=== PATIENT | female | born 1935 | race Two or more races ===

== ENCOUNTER 2018-12-05 13:53 | Emergency (ER) | payer MEDICARE, OTHER ==
[~2018-12-05] VITALS: Ht 160 cm; Wt 86.2 kg
[2018-12-05] MEDS ORDERED: NKM (14:02)
--- NOTE | 2018-12-05 14:22 | NUR ---
ED Nurse Note: Pt came into the ER after falling while walking on the streets. Complaining of 9/10 bilateral knee pain. Pt states that she fell on her knees and the rt side of her face. Rt side of the face noted to be red and slightly swollen. A + O x4. Ambulatory. Granddaughter at the bedside. Skin warm to touch. Swedish speaking only.
[2018-12-05 14:23] VITALS: BP 175/70
[2018-12-05] MEDS ORDERED: Norco 5mg/325mg tab ORAL ONE (14:30)
--- NOTE | 2018-12-05 14:37 | NUR ---
ED Nurse Note: Pt went down for radiology.
--- NOTE | 2018-12-05 15:05 | Diagnostic Imaging Report ---
Indication: Headache Technique: Contiguous 5 mm thick transaxial imaging of the head obtained in a Siemens Sensation [address] scanner. Soft tissue and bone windows generated. Automatic Exposure Control was utilized. Total Dose length Product (DLP): 1944.[address] Dose Index Volume (CTDIvol): 70.38,28.19 mGy Comparison: none Findings: There is moderate prominence of the ventricles, basal cisterns, and cerebral sulci consistent with atrophy. Moderate, nonspecific, white matter hypoattenuation is noted throughout the brain consistent with chronic small vessel disease. There is no midline shift, edema, acute hemorrhage, mass effect, or abnormal extra-axial fluid collections. Bones and extra osseous soft tissues are unremarkable. Impression: No acute intracranial bleed, mass effect or edema. Moderate atrophy of the brain. Evidence of chronic small vessel disease involving white matter tracts. The CT scanner at [facility] is accredited by the [employer] and the scans are performed using dose optimization techniques as appropriate to a performed exam including Automatic Exposure control.
--- NOTE | 2018-12-05 15:08 | NUR ---
ED Nurse Note: Pt came back from CT.
--- NOTE | 2018-12-05 15:20 | Diagnostic Imaging Report ---
Indication: Head and facial trauma and pain Technique: Continuous helical transaxial imaging of the maxillofacial structures obtained without intravenous contrast administration. Coronal 2-D reformats were also obtained. Study obtained in a Siemens sensation [address] Automatic Exposure Control was utilized. Total Dose length Product (DLP): 1944.[address] Dose Index Volume (CTDIvol): 70.38,28.19 mGy Comparison: None Findings: There is no evidence of an acute fracture. Paranasal sinuses and mastoids are clear. Soft tissues are unremarkable. IMPRESSION: No acute injury The CT scanner at [facility] is accredited by the [employer] and the scans are performed using dose optimization techniques as appropriate to a performed exam including Automatic Exposure control.
--- NOTE | 2018-12-05 15:32 | Diagnostic Imaging Report ---
Indication: Pain Knee pain/trauma 3 views of the right knee were obtained. Findings: Bones are osteopenic. No definite fractures identified. Moderate arthrosis demonstrated in all 3 compartments of the knee. IMPRESSION: No acute injury appreciated
--- NOTE | 2018-12-05 15:32 | Diagnostic Imaging Report ---
Indication: Knee Pain 3 views of the left knee were obtained. Findings: There is acute fracture of the patella midpole with prepatellar soft tissue swelling. Bones are osteopenic. Moderate arthrosis of the knee noted in all 3 compartments. IMPRESSION: Acute patellar fracture
--- NOTE | 2018-12-05 17:27 | Emergency Room Report ---
History of Present Illness General Chief Complaint: Pain Source: Family Member Present Illness HPI 83 YO Female presents to the ED c/o 08/31 in severity pain to the bilateral knees, s/p mechanical fall outside, also with tenderness and bruising to the right cheekbone. denies taking blood thinning medications.Denies numbness tingling or loss of sensation or gross motor movements of the extremities, incontinence of bowel or bladder. Denies CP, Palpitations, LOC, AMS, dizziness, Changes in Vision, weakness or a sudden severe headache. The patient denies loss of consciousness and denies chest pain, dizziness or in balance prior to fall. Patient reports that pain is exacerbated with attempts to bear weight on the left leg primarily. She also reports some bruising to the anterior knees bilaterally and some superficial abrasions. she denies midline neck or back pain. Allergies: Coded Allergies: PENICILLINS (Verified Allergy, Unknown, rash, 12/05/18) Patient History Past Medical History: see triage record Past Surgical History: none Pertinent Family History: none Reviewed Nursing Documentation: PMH: Agreed; PSxH: Agreed Review of Systems All Other Systems: negative except mentioned in HPI Physical Exam Vital Signs Date Time Temp Pulse Resp B/P (MAP) Pulse Ox O2 Delivery O2 Flow Rate FiO2 12/05/18 13:59 98.2 81 16 181/69 96 Room Air Sp02 EP Interpretation: reviewed, normal General Appearance: alert, GCS 15, non-toxic, mild distress Head: normocephalic, other - bruising to the right cheekbone, mild ttp as well. Eyes: bilateral eye normal inspection, bilateral eye PERRL, bilateral eye EOMI ENT: hearing grossly normal, normal voice Neck: full range of motion, no bony tend Respiratory: lungs clear, normal breath sounds, speaking full sentences Cardiovascular #1: regular rate, rhythm, normal capillary refill Cardiovascular #2: 2+ dorsalis pedis (R), 2+ dorsalis pedis (L) Musculoskeletal: back normal, tender - TTP to the anterior knees bilaterally, swelling visible, right knee has no increased laxity, left knee unable to tolerate testing. Neurologic: alert, oriented x3, responsive, motor strength/tone normal, sensory intact, speech normal, no pronator, other - no facial droop. , grossly normal Psychiatric: judgement/insight normal Skin: normal color, no rash, warm/dry, well hydrated, other - bruising to the anterior knees bilaterally, and the right cheek bone. , abrasions - anterior knees bilaterally. Lymphatic: no adenopathy Medical Decision Making PA Attestation Dr. Zhang is my supervising Physician whom patient management has been discussed with. Diagnostic Impression: Primary Impression: Patellar fracture Qualified Codes: S82.002A - Unspecified fracture of left patella, initial encounter for closed fracture Additional Impressions: Contusion of right knee Qualified Codes: S80.01XA - Contusion of right knee, initial encounter Contusion of left knee Qualified Codes: S80.02XA - Contusion of left knee, initial encounter ER Course 83 YO Female presents to the ED c/o 08/31 in severity pain to the bilateral knees, s/p mechanical fall outside, also with tenderness and bruising to the right cheekbone. denies taking blood thinning medications.Denies numbness tingling or loss of sensation or gross motor movements of the extremities, incontinence of bowel or bladder. Denies CP, Palpitations, LOC, AMS, dizziness, Changes in Vision, weakness or a sudden severe headache. The patient denies loss of consciousness and denies chest pain, dizziness or in balance prior to fall. Patient reports that pain is exacerbated with attempts to bear weight on the left leg primarily. She also reports some bruising to the anterior knees bilaterally and some superficial abrasions. she denies midline neck or back pain. Ddx considered but are not limited to Fracture, dislocation, contusion, Sprain/ Strain/Spasm, Head injury, subdural hematoma. just to name a few. Vital signs: are WNL, pt. is afebrile H&PE are most consistent with musculoskeletal injury will perform imaging to r/ o fractures/dislocations. ORDERS: - X-rays of the knees bilaterally: left patellar fx. -CT Head and Facial Bones: unremarkable- Per official radiology report- Please see report for specific details. ED INTERVENTIONS: - Newport PO -Knee Immobilizer splint applied to the Left Knee by emg technician. Pt. remains neurovascularly intact. --Patient is provided with crutches and instructed on their use DISCHARGE: At this time pt. is stable for d/c to home. Will provide printed patient care instructions, and any necessary prescriptions. Care plan and follow up instructions have been discussed with the patient prior to discharge. Other X-Ray Diagnostic Results Other X-Ray Diagnostic Results #1: X-Ray ordered: Right Knee # of Views/Limited Vs Complete: 3 View Indication: Pain EP Interpretation: Yes YAMILETH Xray: Interpretation reviewed, by supervising MD, and agrees with findings. Interpretation: no dislocation, no soft tissue swelling, no fractures Impression: No acute disease Electronically Signed by: Nery Obrien PA-C Other X-Ray Diagnostic Results #2: X-Ray ordered: Left Knee # of Views/Limited Vs Complete: 3 View Indication: Pain EP Interpretation: Yes YAMILETH Xray: Interpretation reviewed, by supervising MD, and agrees with findings. Interpretation: no dislocation, no soft tissue swelling, no fractures Impression: No acute disease Electronically Signed by: Nery Obrien PA-C CT/MRI/US Diagnostic Results CT/MRI/US Diagnostic Results : Imaging Test Ordered: -CT Head and Facial Bones Impression unremarkable- Per official radiology report- Please see report for specific details. Last Vital Signs Date Time Temp Pulse Resp B/P (MAP) Pulse Ox O2 Delivery O2 Flow Rate FiO2 12/05/18 15:00 98.1 12/05/18 14:23 65 20 175/70 97 Room Air Disposition: HOME, SELF-CARE Condition: Stable Scripts Bacitracin/Polymyxin B Sulfate (BACITRACIN-POLYMYXIN OINTMENT) 28.35 Gm Oint...g. 1 APPLIC TP BID, #28.3 GM Prov: Nery Obrien 12/05/18 Hydrocodone Bit/Acetaminophen 5-325* (NORCO 5-325*) 1 Each Tablet 1 TAB ORAL Q6H PRN for For Pain, #15 TAB 0 Refills Prov: Nery Obrien 12/05/18 Referrals: NON PHYSICIAN (PCP) Patient Instructions: Patellar Fracture, Adult Additional Instructions: Take medications as directed. Follow up with an [facility] in 3-5 days, even if your symptoms have resolved. --Please review list of primary care clinics, if you do not already have a primary care provider who can give you an Orthopedic Referral. Return sooner to ED if new symptoms occur, or current symptoms become worse. Do not drink alcohol, drive, or operate heavy machinery while taking Newport as this may cause drowsiness. - Please note that this Emergency Department Report was dictated using [employer] buildup mechanic technology software, occasionally this can lead to erroneous entry secondary to interpretation by the dictation equipment. Nery Obrien Dec 05, 2018 17:27
[2018-12-05] MEDS ORDERED: BACITRACIN-P28.35 GM TP (17:29)
[2018-12-05] MEDS ORDERED: NORCO 5-325 TA1 EACH ORAL (17:29)
[2018-12-05 17:39] VITALS: BP 125/78
--- NOTE | 2018-12-05 17:40 | NUR ---
ED Nurse Note: Discharge instructions given to pt. Answered all questions. Verbalized understanding. No acute distress noted. ID band removed. Left ER w/ steady gait and all belongings.
== END 2018-12-05 17:38 | disposition home or self-care (01) ==
LOC: EMR 14:43
DX: S82.002A Unspecified fracture of left patella, initial encounter for closed fracture (principal); S80.01XA Contusion of right knee, initial encounter; S00.83XA Contusion of other part of head, initial encounter; S80.212A Abrasion, left knee, initial encounter; S80.211A Abrasion, right knee, initial encounter; W19.XXXA Unspecified fall, initial encounter; Y92.89 Other specified places as the place of occurrence of the external cause; Z88.0 Allergy status to penicillin
CPT/HCPCS: 70450; 70486; 99284